=== PATIENT | male | born 1975 | race Caucasian/White ===

== ENCOUNTER → 2024-05-27 15:47 | Outpatient (REF) | payer BC, SELFPAY | LOC: RAD 15:47 | PROVIDERS: ATTENDING PHYSICIAN Otolaryngology | DX: D37.05 Neoplasm of uncertain behavior of pharynx (principal) | CPT/HCPCS: 70491; Q9967 ==

== ENCOUNTER → 2024-05-28 09:19 | Outpatient (REF) | payer BC, SELFPAY | LOC: RAD 09:19 | PROVIDERS: ATTENDING PHYSICIAN Otolaryngology | DX: K21.9 Gastro-esophageal reflux disease without esophagitis (principal) | CPT/HCPCS: 74221 ==